=== PATIENT | male | born 1980 | race Caucasian/White ===

== ENCOUNTER 2023-09-05 10:09 | Emergency (ER) | payer BC, SELFPAY ==
[2023-09-05] VITALS (10 sets, daily range): BP systolic 131–171; BP diastolic 89–120; PULSE 72–103; RESP 14–16; TEMP 37.1–38.3; O2SAT 95–98; BMI 29.8
[2023-09-05 10:17] LABS: Microscopic, Urine URINE MICROSCOPIC (MICROSCOPIC)
[2023-09-05 10:20] LABS: Appearance,Urine CLEAR (Clear); Bilirubin,Urine Negative (Negative); Blood, Urine Negative (Negative); Color,Urine YELLOW (Yellow); Glucose,Urine (UA) TRACE (Negative); Ketones,Urine 1+ (Negative); Leukocyte Esterase,Urine TRACE (Negative); Nitrate,Urine Negative (Negative); Protein,Urine 1+ (Negative); Specific Gravity, Urine >= 1.030 (1.005-1.030)
--- NOTE | 2023-09-05 10:25 | CT_ITS ---
FINAL REPORT CLINICAL HISTORY: suprapubic/L flank pain COMPARISON: None FINDINGS: CT OF THE ABDOMEN AND PELVIS WITH CONTRAST Axial CT images of the abdomen and pelvis were obtained after the administration of IV contrast. Coronal and sagittal reformatted images were also obtained and reviewed. This study was performed with techniques to keep radiation doses as low as reasonably achievable (ALARA). Individualized dose reduction techniques using automated exposure control or adjustment of mA and/or kV according to the patient's size were employed. Abdomen: The lung bases are clear. There is a 5.4 cm left cardiophrenic angle mass, that may represent a pericardial cyst or other cystic mass. The heart is normal in size. Mild fatty infiltration of the liver is present. There is mild gallbladder wall thickening without definite stones identified. The spleen is unremarkable. No adrenal mass is present. The pancreas has an unremarkable appearance. The kidneys are normal, without evidence of mass or hydronephrosis. The aorta is normal in caliber. There is no free fluid or adenopathy. No mass or abnormal fluid collection is seen. Pelvis: The appendix is not well-visualized. The urinary bladder is unremarkable. There is diverticulosis in the descending and sigmoid colon, with inflammatory change adjacent to the proximal sigmoid colon consistent with acute diverticulitis. There are multiple foci of extraluminal air superior to this segment of colon, that are consistent with microperforations. No focal fluid collection to suggest an abscess is present. There is no evidence of bowel obstruction. IMPRESSION: Findings consistent with acute sigmoid diverticulitis. Reviewed, Interpreted and Dictated by Gutierrez Wesley III, MD Transcribed by Adela Salguero Authenticated and [facility]
[2023-09-05 10:37] LABS: Basophils # 0.1 K/mm3 (0-0.2); Basophils % 0.6 % (0.1-2.0); Eosinophils % 0.3 % (0.1-12.0); Hematocrit 47.6 % (42.0-52.0); Lymphocytes # 1.5 K/mm3 (0.7-4.5); Lymphocytes % 10.6 % (10-50); Mean Corpuscular HGB Conc 33.7 g/dL (31.8-35.4); Mean Corpuscular Hemoglobin 30.4 pg (27.0-31.2); Mean Corpuscular Volume 90.3 fl (80-94); Mean Platelet Volume 8.2 fl (7.4-10.4); Monocytes # 0.7 K/mm3 (0.1-1.0); Monocytes % 4.8 % (1.7-9.3); Neutrophils # 11.6 K/mm3 (1.8-7.8); Neutrophils % 83.7 % (37.0-80.0); Platelet Count 261 K/mm3 (142-424); Red Blood Count 5.27 M/mm3 (4.60-6.20); Red Cell Distribution Width 13.1 % (11.5-17.5); White Blood Count 13.8 K/mm3 (4.8-10.8)
[2023-09-05 10:38] LABS: Chloride 102 mmol/L (98-107); Potassium 4.1 mmoL/L (3.5-5.1); Sodium 138 mmol/L (136-145)
--- NOTE | 2023-09-05 10:38 | PC.NURSE ---
pt gone to CT
[2023-09-05 10:39] LABS: Coronavirus 19, PCR Not Detected (NotDetected); Influenza A, PCR Not Detected (NotDetected); Influenza B, PCR Not Detected (NotDetected)
[2023-09-05 10:40] LABS: Alanine Aminotransferase 59 U/L (12-78); Alkaline Phosphatase 75 U/L (38-126); Aspartate Amino Transferase 35 U/L (17-59); Bilirubin,Total 1.1 mg/dl (0.2-1.3); Blood Urea Nitrogen 16 mg/dl (9-20); Creatinine Clearance Estimated 133 mL/min (50-200); Estimated Glomerular Filt Rate 81 ml/min (>60); GFR (African American) 98 ML/MIN (>60)
--- NOTE | 2023-09-05 10:40 | HMH.EDGENADL ---
Discharge Plan Disposition Patient Disposition: Home, Self-Care Prescriptions Prescriptions: New ondansetron 4 mg tablet,disintegrating 4 mg PO Q8H PRN (Reason: nausea and vomiting) 4 Days Qty: 12 0RF oxycodone 5 mg tablet 5 mg PO Q8H PRN (Reason: pain (scale score 7-10)) Qty: 12 0RF Rx Instructions: Please take only if pain is still severe after Tylenol and ibuprofen. amoxicillin-pot clavulanate 875-125 mg tablet 1 tab PO BID Qty: 20 0RF Referrals Follow up/Referrals: Provider,Referral, MD [Primary Care Provider] - See instructions Activity Restrictions/Add. Instructions Additional Instructions/Restrictions: At this time it was felt you are safe to be discharged home. If new or worsening symptoms please do not hesitate to return the emergency department. Please follow-up with your family doctor within 1 week for continued evaluation to ensure you are getting better. Please take your medications as prescribed. Clinical Impressions Clinical Impression: Diverticulitis Stand Alone Forms Stand Alone Forms: Work/School Release Instructions Patient Instructions: DI for Acute Abdominal Pain Discharge ED Provider: Reggie Varghese General Adult HPI General Chief complaint: Abdominal Pain Stated complaint: abd pain Time Seen by Provider: 09/05/23 10:11 Mode of Arrival: Ambulatory Source of Information: Patient Limitations: No Limitations Description of Symptoms (Recalled from ER Triage Doc. by RN): pt c/o centralized lower abd pain x5d. pt states the pain is 9/10 and cramping in nature. pt states he is having urinary frequency but at times unable to void, N/V, and L flank pain. pt has a hx of an appendectomy. pts PVR is 0 History of Present Illness HPI narrative: Patient is a 43-year-old male with past medical history of previous appendectomy who presents to the emergency department for evaluation of abdominal pain. It is intermittent, cramping in nature, suprapubic and radiating up his left flank. No vomiting, no reported chest pain. No other acute complaints at this time. Related Data Previous Rx's Medication Instructions Recorded amoxicillin 875 mg-potassium 1 tab PO BID diverticulitis #20 09/05/23 clavulanate 125 mg tablet tabs ondansetron 4 mg disintegrating 4 mg PO Q8H PRN nausea and 03/11/24 tablet vomiting 4 days #12 tabs oxycodone 5 mg tablet 5 mg PO Q8H PRN pain (scale score 09/05/23 7-10) #12 tabs Allergies Allergy/AdvReac Type Severity Reaction Status Date / Time No Known Allergies Allergy Verified 09/05/23 11:19 [facility] Disclaimer: The information contained in this section may have been updated after the patient was seen, as this information can be updated by other users. Social History Smoking Status: Never smoker alcohol intake: never current occupational status: other Travel in the last 8 weeks: None ROS Obtained: Yes Systems reviewed as appropriate & no additional complaints except as documented Physical Exam General General appearance: alert and in no apparent distress Head Head exam: atraumatic and normocephalic Eye Eye exam: Present PERRL and EOMI ENT ENT exam: Present mucous membranes moist Neck Neck exam: Present normal inspection Chest Chest inspection: Present normal inspection and symmetric chest wall rise Respiratory Respiratory exam: Present normal lung sounds bilaterally; Absent respiratory distress Cardiovascular Cardiovascular exam: Present regular rate and normal rhythm Abdominal Exam Abdominal exam: Present soft, tenderness (Suprapubic) and other (No CVA tenderness) Extremities Exam Extremities exam: Present normal inspection Neurological Exam Neurological exam: Present alert Psychiatric Psychiatric exam: Present normal affect Skin Skin exam: Present warm and dry Medical Decision Making Lex Inquiry Pt receiving controlled substance: No Vital Signs: 09/05/23 10:15 09/05/23 10:26 09/05/23 10:30 Temperature 100.5 F H Temperature Source Oral Pulse Rate 101 H 101 H Pulse Rate [Left] 101 H Respiratory Rate 16 14 16 Blood Pressure 147/96 H 171/120 H Blood Pressure [Right Arm] 147/96 H Blood Pressure Mean 113 137 Blood Pressure Mean [Right Arm] 113 Blood Pressure Source Blood Pressure Source [Right Arm] Automatic Cuff Blood Pressure Position Blood Pressure Position [Right Arm] Sitting 02 Sat by Pulse Oximetry 97 98 97 Oxygen Delivery Method Room Air 09/05/23 10:49 09/05/23 11:00 09/05/23 11:15 Temperature 100.9 F H Temperature Source Pulse Rate 102 H 103 H 102 H Pulse Rate [Left] Respiratory Rate 16 16 16 Blood Pressure 144/99 H 143/97 H 144/98 H Blood Pressure [Right Arm] Blood Pressure Mean 114 114 107 Blood Pressure Mean [Right Arm] Blood Pressure Source Blood Pressure Source [Right Arm] Blood Pressure Position Blood Pressure Position [Right Arm] 02 Sat by Pulse Oximetry 98 Oxygen Delivery Method 09/05/23 11:30 09/05/23 12:00 09/05/23 12:30 Temperature Temperature Source Pulse Rate 78 72 80 Pulse Rate [Left] Respiratory Rate Blood Pressure 148/103 H 138/92 H 131/89 Blood Pressure [Right Arm] Blood Pressure Mean Blood Pressure Mean [Right Arm] Blood Pressure Source Blood Pressure Source [Right Arm] Blood Pressure Position Blood Pressure Position [Right Arm] 02 Sat by Pulse Oximetry 95 95 95 Oxygen Delivery Method Room Air Room Air Room Air 09/05/23 13:52 Temperature 98.8 F Temperature Source Oral Pulse Rate 78 Pulse Rate [Left] Respiratory Rate 15 Blood Pressure 145/90 H Blood Pressure [Right Arm] Blood Pressure Mean Blood Pressure Mean [Right Arm] Blood Pressure Source Automatic Cuff Blood Pressure Source [Right Arm] Blood Pressure Position Sitting Blood Pressure Position [Right Arm] 02 Sat by Pulse Oximetry Oxygen Delivery Method Room Air Lab Data Lab Results 09/05/23 10:13: Urine Color Yellow, Urine Appearance Clear, Urine pH 6.0, Ur Specific Jansen >= 1.030, Urine Protein 1+, Urine Glucose (UA) Trace, Urine Ketones 1+, Urine Blood Negative, Urine Nitrate Negative, Urine Bilirubin Negative, Urine Urobilinogen 1.0, Ur Leukocyte Esterase Trace, Urine RBC Occasional, Urine WBC 5-10, Amorphous Sediment 1+, Urine Bacteria 1+, Urine Mucus 3+ 09/05/23 10:18: WBC 13.8 H, RBC 5.27, Hgb 16.0, Hct 47.6, MCV 90.3, MCH 30.4, MCHC 33.7, RDW 13.1, Plt Count 261, MPV 8.2, Neut % (Auto) 83.7 H, Lymph % (Auto) 10.6, [place] % (Auto) 4.8, Eos % (Auto) 0.3, Baso % (Auto) 0.6, Neut # (Auto) 11.6 H, Lymph # (Auto) 1.5, [place] # (Auto) 0.7, Eos # (Auto) 0.0, Baso # (Auto) 0.1, Sodium 138, Potassium 4.1, Chloride 102, Carbon Dioxide 31 H, Anion Gap 9.1, BUN 16, Creatinine 1.00, Estimated Creat Clear 133, Estimated GFR 81, Est GFR ( Amer) 98, Glucose 130 H, Calcium 9.1, Total Bilirubin 1.1, AST 35, ALT 59, Alkaline Phosphatase 75, Total Protein 7.6, Albumin 4.3, Globulin 3.3 H, Albumin/Globulin Ratio 1.3, Lipase 193 09/05/23 10:33: SARS-CoV-2 (PCR) Not detected, Influenza A Untype (PCR) Not detected, Influenza Type B (PCR) Not detected 09/05/23 10:18 09/05/23 10:18 Orders (Tests/Meds): ED MEDICATIONS Discontinued Medications Generic Name Dose Route Start Last Admin Trade Name Freq PRN Reason Stop Dose Admin Acetaminophen 1,000 mg 09/05/23 10:25 09/05/23 10:49 Acetaminophen 1,000mg/100ml Vial IV 09/05/23 10:26 1,000 mg ONCE ONE Administration Lactated Ringer's 1,000 mls @ 999 mls/hr 09/05/23 10:25 09/05/23 10:49 Lactated Ringer's 1000 Ml Bag IV 09/05/23 11:25 999 mls/hr .Q1H1M ONE Administration Iopamidol 75 ml 09/05/23 10:38 09/05/23 10:42 Iopamidol-370 (76%);100ml Bottle IV 09/05/23 10:39 75 ml ONCE ONE Administration Ketorolac Tromethamine 30 mg 09/05/23 10:25 09/05/23 10:49 Ketorolac 30mg/Ml Vial IV 09/05/23 10:26 30 mg ONCE ONE Administration Ondansetron HCl 4 mg 09/05/23 10:25 09/05/23 10:49 Ondansetron 4mg/2ml Vial IV 09/05/23 10:26 4 mg ONCE ONE Administration Sodium Chloride 10 ml 09/05/23 10:38 Sodium Chloride 0.9% 10ml Syr (Rad Only) IV 10/05/23 10:37 NEEDED PRN Maintain IV Site ORDERS Category Date Time Status CT abdomen pelvis w con Stat Cat Scan 09/05/23 10:25 Completed CBC w/Auto Diff [Complete Blood Count Auto Diff] Stat Lab 09/05/23 10:18 Completed CMP [Comprehensive Metabolic Panel] Stat Lab 09/05/23 10:18 Completed Lipase Stat Lab 09/05/23 10:18 Completed Rapid PCR Covid and Flu A/B Stat Lab 09/05/23 10:33 Completed UA [Urinalysis and Microscopic] Stat Lab 09/05/23 10:13 Completed Medical Decision Narrative: In summary patient is a 43-year-old male with past medical history described above presents emergency department for evaluation of suprapubic and left flank pain. Patient is hemodynamically stable nontoxic-appearing upon arrival, febrile temperature 100.5 ?F, slight tachycardia heart rate 101. Differential includes cystitis, pyelonephritis, diverticulitis, obstructive uropathy, among others. Workup will be conducted with hematologic labs, urinalysis, CT abdomen pelvis IV contrast. Initial interventions include crystalloid bolus, Tylenol, Toradol, Zofran. Initial workup reviewed by me, hematologic labs remarkable for leukocytosis, no critical electrolyte abnormalities. Urinalysis interpreted by me not consistent with infection. CT imaging consistent with acute sigmoid diverticulitis, no fluid collection to suggest abscess. Upon repeat evaluation patient continued to be afebrile, no tachycardia. He underwent p.o. trial with successful. Given this patient undergo empiric outpatient treatment for diverticulitis with antibiotics and pain control and was given multiple return precautions and verbalized understanding. Critical Care Critical Care Time Critical Care Time: No
[2023-09-05 10:41] LABS: Albumin Level 4.3 g/dl (3.5-5.0); Albumin/Globulin Ratio 1.3 (1.1-1.8); Anion Gap 9.1 mEq/L (5-15); Calcium 9.1 mg/dl (8.4-10.2); Carbon Dioxide 31 mmol/L (22.0-30.0); Globulin 3.3 g/dL (1.3-3.2); Glucose 130 mg/dl (74-100); Lipase 193 U/L (23-300); Total Protein,Serum 7.6 g/dl (6.3-8.2)
[2023-09-05] MEDS: IOPAMIDOL-370 (76%);100ML BOTTLE 75 ML IV (10:42)
[2023-09-05 10:47] LABS: Amorphous Sediment,Urine 1+ /lpf; Bacteria,Urine 1+ /lpf; Mucus,Urine 3+ /lpf; RBC,Urine Occasional #/hpf (0-3)
[2023-09-05] MEDS: ACETAMINOPHEN 1,000MG/100ML VIAL 1000 MG IV (10:49)
[2023-09-05] MEDS: LACTATED RINGERS 1000ML 1,000 ML 999 ML IV (10:49)
[2023-09-05] MEDS: KETOROLAC 30MG/ML VIAL 30 MG IV (10:49)
[2023-09-05] MEDS: ONDANSETRON 4MG/2ML VIAL 4 MG IV (10:49)
--- NOTE | 2023-09-05 11:19 | PC.NURSE ---
K.BROWN ROUNDED ON PT
--- NOTE | 2023-09-05 11:19 | PC.NURSE ---
Rounded on pt. No needs or complaints voiced at this time. Call light within reach.
--- NOTE | 2023-09-05 11:50 | PC.NURSE ---
PT updated that we are waiting on CT results. No needs voiced. Call light within reach.
--- NOTE | 2023-09-05 12:57 | PC.NURSE ---
I rounded and unhooked pt so that he was able to go to the bathroom.
--- NOTE | 2023-09-05 13:19 | PC.NURSE ---
pt provided with water
--- NOTE | 2023-09-05 13:27 | PC.NURSE ---
PT DOING A PO CHALLANGE WITH NO PROBLEMS
--- NOTE | 2023-09-05 13:30 | PC.NURSE ---
DR. JACKSON IN TO UPDATE PATIENT ON POC. PATIENT DRINKING 2ND BOTTLE OF WATER.
== END 2023-09-05 13:54 | disposition home or self-care (01) ==
PROVIDERS: Emergency Provider Emergency Medicine
DX: K57.32 Diverticulitis of large intestine without perforation or abscess without bleeding (principal); R10.30 Lower abdominal pain, unspecified; R35.0 Frequency of micturition; R11.2 Nausea with vomiting, unspecified
CPT/HCPCS: 74177; 80053; 81001; 83690; 85025; 87636; 96361; 96374; 96375; 99285; J0131; J2405; Q9967

== ENCOUNTER 2023-09-22 14:47 | Outpatient (CLI) | payer BC, SELFPAY ==
[2023-09-22] MEDS: ALBUTEROL 0.083% 2.5 MG/3 ML NEB IH (15:22)
== END 2023-09-22 23:59 ==
PROVIDERS: PCP Family Medicine; Visit Provider Family Medicine
DX: R06.09 Other forms of dyspnea (principal); R06.02 Shortness of breath
CPT/HCPCS: 94060

== ENCOUNTER 2024-04-02 14:35 | Outpatient (CLI) | payer BC, SELFPAY ==
[2024-04-02 13:12] LABS: Basophils # 0.1 K/mm3 (0-0.2); Eosinophils # 0.1 K/mm3 (0.0-0.4); Eosinophils % 1.5 % (0.1-12.0); Hematocrit 47.1 % (42.0-52.0); Hemoglobin 15.7 g/dL (14.1-18.0); Lymphocytes # 1.6 K/mm3 (0.7-4.5); Lymphocytes % 21.5 % (10-50); Mean Corpuscular HGB Conc 33.4 g/dL (31.8-35.4); Mean Corpuscular Hemoglobin 29.1 pg (27.0-31.2); Mean Corpuscular Volume 87.1 fl (80-94); Monocytes # 0.4 K/mm3 (0.1-1.0); Monocytes % 5.8 % (1.7-9.3); Neutrophils # 5.1 K/mm3 (1.8-7.8); Neutrophils % 70.2 % (37.0-80.0); Platelet Count 212 K/mm3 (142-424); Red Blood Count 5.41 M/mm3 (4.60-6.20); Red Cell Distribution Width 13.6 % (11.5-17.5); White Blood Count 7.2 K/mm3 (4.8-10.8)
[2024-04-02 13:36] LABS: Albumin Level 4.7 g/dl (3.5-5.0); Chloride 101 mmol/L (98-107); Potassium 4.9 mmoL/L (3.5-5.1); Sodium 139 mmol/L (136-145)
[2024-04-02 13:38] LABS: Blood Urea Nitrogen 16 mg/dl (9-20); Estimated Glomerular Filt Rate 105 ml/min (>60); GFR (African American) 126 ML/MIN (>60)
[2024-04-02 13:39] LABS: Alanine Aminotransferase 28 U/L (12-78); Alkaline Phosphatase 63 U/L (38-126); Anion Gap 11.9 mEq/L (5-15); Aspartate Amino Transferase 29 U/L (17-59); Bilirubin,Total 0.9 mg/dl (0.2-1.3); Calcium 9.4 mg/dl (8.4-10.2); Carbon Dioxide 31 mmol/L (22.0-30.0); Chol/HDL Ratio 4.6 (1-3.5); Cholesterol 189 mg/dl (140-200); Globulin 2.4 g/dL (1.3-3.2); Glucose 92 mg/dl (74-100); HDL Cholesterol 41 mg/dl (40-60); Total Protein,Serum 7.1 g/dl (6.3-8.2); Triglycerides 171 mg/dl (30-150); VLDL Cholesterol 34 mg/dL (0-40)
[2024-04-02 13:50] LABS: Direct LDL Cholesterol 115.22 mg/dL (100-129)
[2024-04-02 14:09] LABS: Thyroid Stimulating Hormone 1.24 uIU/mL (0.465-4.68)
[2024-04-02 15:59] LABS: Prostate Specific Ag Screen 4.7 ng/ml (0.0-4.0)
== END 2024-04-02 23:59 | disposition home or self-care (01) ==
LOC: LAB.DROPOF 14:35
PROVIDERS: PCP Nurse Practitioner Family; Visit Provider Nurse Practitioner Family
DX: K76.0 Fatty (change of) liver, not elsewhere classified (principal); R74.8 Abnormal levels of other serum enzymes; Z13.220 Encounter for screening for lipoid disorders; Z12.5 Encounter for screening for malignant neoplasm of prostate
CPT/HCPCS: 80050; 80053; 80061; 84443; 85025; G0103

== ENCOUNTER 2024-04-12 08:55 | Outpatient (CLI) | payer BC, SELFPAY ==
--- NOTE | 2024-04-12 09:01 | XR_ITS ---
PROCEDURE INFORMATION: Exam: XR Right Elbow Exam date and time: 04/12/2024 9:02 AM Age: 44 years old Clinical indication: Pain; Elbow; Right; Additional info: Right elbow pain TECHNIQUE: Imaging protocol: Radiologic exam of the right elbow. Views: 3 or more views. AP Oblique Lateral COMPARISON: CR XR ELBOW RT MIN 3V 04/12/2024 9:02 AM FINDINGS: Bones/joints: No visualized bony fracture or dislocation. No evidence for a joint effusion. Soft tissues: The soft tissue appear unremarkable. Notes: If there is further concern, recommend follow-up radiographs or MRI for complete assessment. IMPRESSION: No fracture or dislocation.
== END 2024-04-12 23:59 | disposition home or self-care (01) ==
LOC: RAD 08:58
PROVIDERS: PCP Nurse Practitioner Family; Visit Provider Physician Assistant
DX: M25.521 Pain in right elbow (principal)
CPT/HCPCS: 73080

== ENCOUNTER 2024-04-16 07:50 | Outpatient (RCR) | payer BC, SELFPAY ==
--- NOTE | 2024-04-16 08:59 | HMH.OTOPEV ---
OT Inpatient Evaluation Rehab OT Outpatient Eval Start: 04/16/24 08:29 Freq: Status: Active Protocol: Document 04/16/24 08:32 MARIAMAVANNESSA (Rec: 04/16/24 08:58 MARIAMAVANNESSA [id number]) E-signed By Juliet Lozada, OT Outpatient Therapy Subjective History Subjective History 44 year old male referred to skilled OP OT services for R elbow lateral epicondylitis ~1 year. Patient has trialed modifications for work slimplications with typing at work with little progress noted. Patient has trialed elbow sleeve for compression to decrease pain, with little progress noted. Ortho referred patient to therapy servcies to decrease pain in the left elbow, f/u in 4 weeks. New diagnosis of cancer in past 12 No months? Chief Complaint Pain Symptom Type Ache Symptoms Relieved By Nothing Symptoms Aggravated By Physical Activity Prior Functional Limitations None Current Functional Limitations Reaching,Lifting,Desk Work/ Reading,Sleeping,Recreation Activity Symptom Description Constant and Continuous Level of pain today (0-10) 4 Pain scale - at its best (0-10) 4 Pain scale - at its worst (0-10) 6 Shoulder/Elbow Eval Shoulder Objective Measurements Elbow Objective Measurements Elbow ROM Right full ROM elbow exam standard right Elbow Extension Active Range of Motion ( 0 degrees) Elbow Flexion Active Range of Motion ( 140 degrees) Elbow Pronation of Forearm Range of 90 Motion (degrees) Elbow Supination of Forearm Range of 80 Motion (degrees) QuickDASH Activities Please rate your ability to do the following activities in the last week by selecting the number below the appropriate response. 1. Open a tight or new jar. Moderate difficulty 2. Do heavy creative services specialist (e.g., wash Mild difficulty posadas, floors). 3. Carry a shopping bag or briefcase. Mild difficulty 4. Wash your back. No difficulty 5. Use a knife to cut food. No difficulty 6. Recreational activities in which you Moderate difficulty take some force or impact through your arm, shoulder, or hand (e.g., golf, hammering, tennis, etc.). 7. During the past week, to what extent Moderately has your arm, shoulder or hand problem interfered with your normal social activities with family, friends, neighbors or groups? 8. During the past week, were you Moderately limited limited in your work or other regular daily activites as a result of your arm, shoulder or hand problem? 9. Arm, shoulder or hand pain. Moderate 10. Tingling (pins and needles) in your None arm, shoulder or hand. 11. During the past week, how much Moderate difficulty difficulty have you had sleeping because of the pain in your arm, shoulder or hand? Quick DASH 25 OT Outpatient Assessment Impairments Problems/Impairments Impaired Range of Motion, Impaired Strength,Subjective C /O Pain Prognosis Rehab Potential Good Clinical Impression Consistent with Diagnosis Yes Short Term Goals Number of Weeks 2 Increase Strength Yes: Improve L UE hand director camp to 95# Decrease Subjective C/O Pain Yes: 5/10 pain at worst Patient to be Ind w/ Advanced HEP Yes: Strengthening Improve Quick Dash Score Yes: 20 Forest Fire Officer Goals Number of Weeks 4 Increase Strength Yes: Improve L UE hand director camp to 105# Decrease Subjective C/O Pain Yes: 4/10 pain at worst Patient to be Ind w/ Advanced HEP Yes: Advance strengthening Improve Quick Dash Score Yes: 15 Outpatient Therapy Plan of Care Treatment Plan May Include Therapeutic Exercise Including Home Yes Exercise Program Manual Therapy Techniques Yes Therapeutic Activities to Return to Yes Previous Functional/Work Level Thermal Modalities Yes Electrical Stimulation Yes Ultrasound/Phonophoresis Yes Iontophoresis Yes Eval/Re-Eval Yes Aquatic Therapy Yes Frequency Times per week 1-2x/wk Duration Number of Weeks 4 weeks Addendums This patient is a candidate for social No or vocational rehab? Patient/Guardian verbally acknowledges Yes understanding of treatment program and consents to further treatment? Patient/Guardian verbally acknowledges Yes understanding of diagnosis, prognosis and goals for treatment? Eval Complexity OT Charge 10980 - Low Complexity PHYSICIAN CERTIFICATION: I certify the specified therapy services for Slava Orantes are required, authorized, and reviewed every 30 days.
== END 2024-04-16 23:59 | disposition home or self-care (01) ==
LOC: OT 07:50
PROVIDERS: Visit Provider Physician Assistant
DX: M77.11 Lateral epicondylitis, right elbow (principal)
CPT/HCPCS: 97165

== ENCOUNTER 2024-04-16 09:19 | Outpatient (CLI) | payer BC, SELFPAY ==
[2024-04-17 14:13] LABS: PSA, Free 0.99 ng/mL; Prostate Specific Ag 4.5 ng/mL (0.0-4.0)
== END 2024-04-16 23:59 | disposition home or self-care (01) ==
LOC: LAB 09:20
PROVIDERS: PCP Nurse Practitioner Family; Visit Provider Urology
DX: R97.20 Elevated prostate specific antigen [PSA] (principal)
CPT/HCPCS: 36415; 84153; 84154

== ENCOUNTER 2024-05-30 12:31 | Day surgery (SDC) | payer BC, SELFPAY ==
[2024-05-23 15:25] VITALS: BMI 26.4
[2024-05-30 12:57] VITALS: BP 130/79; PULSE 69; RESP 18; TEMP 36.5; O2SAT 97; BMI 26.4
[2024-05-30] MEDS: LACTATED RINGERS 1000ML 1,000 ML 25 ML IV (13:02)
[2024-05-30 14:17] VITALS: O2SAT 100
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
--- NOTE | 2024-05-30 14:24 | [facility].PROCNOTE ---
[facility] Procedure Note Date: 05/30/24 Time: 14:44 Procedure Note:: Colonoscopy Procedure Report: Colonoscopy with cold snare polypectomy Endoscopist: Armaan Rosario II, MD Referring physician: KENN Hess Date of Procedure: May 30, 2024 Equipment: Olympus 190 variable stiffness pediatric colonoscope Sedation: MAC sedation Indication: Mr. Orantes is a 44-year-old gentleman who is here for diagnostic colonoscopy. He had an initial bout of acute sigmoid diverticulitis in August 2023 and went to the emergency department. The CAT scan did show evidence of sigmoid diverticulitis with some multiple foci of extraluminal air superior to the sigmoid colon consistent with microperforations. There was no abscess. The patient was treated with antibiotics. He had a milder bout more recently and did not go to the ER. He had lost insurance and did not take antibiotics but resolved on its own. The patient does report left lower quadrant abdominal pain when this occurs. He does report regular bowel function but often his stool is loose and sometimes with bowel frequency. He does get some occasional bloating without gassiness. He does state that red meats cause him to have diarrhea and fiber can bind him up. The patient reports no rectal bleeding or weight loss. He reports no family history of colon cancer. His paternal and maternal uncles had Crohn's disease. This is his first colonoscopy and it is for diagnostic purposes. Procedure: Prior to the procedure, a history and physical exam was performed, and patient's medications and allergies were reviewed. The risks, benefits and alternatives of the sedation and procedure were discussed with the patient. All questions were answered and informed consent was obtained. The patient was brought to the procedure room. Patient identification and proposed procedure were verified by the physician and the nurse. The patient was placed in a left lateral decubitus position and the scope was passed under direct vision. Throughout the procedure, the patient's blood pressure, pulse, and oxygen saturations were monitored continuously. The colonoscopy was accomplished without difficulty. The patient tolerated the procedure well. Findings: On digital rectal examination there was normal rectal tone. There were no external hemorrhoids. The colonoscope was introduced through the anal canal to the rectum and advanced to the cecum. The ileocecal valve and appendiceal orifice were identified. The scope was advanced a short distance into the ileum which appeared grossly normal. The scope was then withdrawn into the colon. There were 4 colon polyps (transverse x 2 (4 and 4 mm), sigmoid x 1 (5 mm) and rectum x 1 (3 mm)). These were all removed via cold snare polypectomy. The remaining cecum, ascending and transverse colon and mucosa were grossly normal. There were scattered extensive diverticuli throughout the descending and sigmoid colon (LEFT colon). There was some haustral edema/erythema in the mid sigmoid colon suggestive of chronic sigmoid diverticulitis. Upon retroflexion within the rectum there were 1-2 internal hemorrhoids. The preparation was excellent throughout with Paloma Preparation Score of 9. The cecal time was 12 minutes. Impression: 1. Diminutive colonic polyps x 4 2. Left-sided diverticulosis with evidence of chronic or smoldering sigmoid diverticulitis 3. Grade 1-2 internal hemorrhoids Plan: I will follow-up the polyp histology and recommend repeat surveillance colonoscopy again in 5 years. I would encourage dietary measures and psyllium fiber supplementation. Diverticulitis is defined as inflammation of a diverticulum which occurs when there is thinning of the diverticular wall from increased intraluminal gas pressure within the colon or hardened particles of stool which can become lodged within the diverticulum pocket. These events reduce blood flow to this small pocket and increase the risk of inflammation and infection. This is called diverticulitis. There are uncomplicated and complicated forms of diverticulitis as well as acute and chronic diverticulitis. Uncomplicated diverticulitis accounts for 75% of cases and is not associated with complication and typically responds to medical treatment without surgery. Complicated diverticulitis which involves having a colonic diverticular abscess, fistula, obstruction or perforation (even with microperforation) which accounts for the remaining 25%, most often requires surgery. The patient did have complicated diverticulitis with microperforation and thus he is at higher risk for future complication. It is this particular subset of patients with diverticulitis that need to consider elective sigmoid resection.
[2024-05-30 14:46] VITALS: BP 102/59; PULSE 71; RESP 16; TEMP 36.7; O2SAT 96
[2024-05-30 14:56] VITALS: BP 100/62; PULSE 90; RESP 16; O2SAT 100
[2024-05-30 15:16] VITALS: BP 111/77; PULSE 71; RESP 16; O2SAT 98
== END 2024-05-30 15:18 | disposition home or self-care (01) ==
PROVIDERS: PCP Nurse Practitioner Family; Visit Provider Internal Medicine Gastroenterology
PROC: (CPT 45385; principal; 2024-05-30 14:00)
DX: K57.32 Diverticulitis of large intestine without perforation or abscess without bleeding (principal); K63.5 Polyp of colon; K57.30 Diverticulosis of large intestine without perforation or abscess without bleeding; K64.8 Other hemorrhoids
CPT/HCPCS: 45385; J7120